=== PATIENT | male | born 1990 | race Caucasian/White ===

== ENCOUNTER 2020-05-23 02:27 | Emergency (ER) | payer SELFPAY | END 2020-05-23 04:25 | LOC: EMS 02:29 | DX: S00.83XA Contusion of other part of head, initial encounter (principal); S00.03XA Contusion of scalp, initial encounter; S10.93XA Contusion of unspecified part of neck, initial encounter; F10.129 Alcohol abuse with intoxication, unspecified; Y04.0XXA Assault by unarmed brawl or fight, initial encounter; Y93.89 Activity, other specified; Y92.89 Other specified places as the place of occurrence of the external cause; Y99.8 Other external cause status | CPT/HCPCS: 99283; Z7502 ==